=== PATIENT | female | born 1945 | race Caucasian/White ===

== ENCOUNTER 2016-06-27 20:24 | Emergency (ER) | payer MEDICARE ==
[2016-06-27] MEDS ORDERED: FUROSEMIDE 20 MG TABLET ONE (23:58)
== END 2016-06-28 00:14 | disposition home or self-care (01) ==
LOC: ED 20:24
DX: R60.0 Localized edema (principal); I10 Essential (primary) hypertension; Z87.891 Personal history of nicotine dependence